=== PATIENT | female | born 1980 | race African-American/Black ===

== ENCOUNTER 2016-12-25 11:25 | Day surgery (SDC) | payer OTHER ==
[2016-12-25 11:30] VITALS: BP 162/93
[2016-12-26] MEDS ORDERED: MORPHINE ONE (09:10)
[2016-12-26] MEDS ORDERED: VERSED ONE (09:10)
== END 2016-12-25 14:54 | disposition left against medical advice (07) ==
LOC: 4N 14:47 → EDIPHOLD 14:47 → UNDODISIN 14:54 → OPS 14:54 → EDSTATUS 12-26 14:56
PROVIDERS: ATTEND Internal Medicine
DX: Z53.21 Procedure and treatment not carried out due to patient leaving prior to being seen by health care provider (principal); Z79.899 Other long term (current) drug therapy; Z79.4 Long term (current) use of insulin

== ENCOUNTER 2017-05-03 10:47 | Inpatient (IN) ==
[2017-05-03] MEDS ORDERED: ZOFRAN IV ONE ×2 (11:32→13:57)
[2017-05-03] MEDS ORDERED: MORPHINE IV ONE ×2 (11:33→13:57)
--- NOTE | 2017-05-03 11:38 | PROVIDER DOCUMENTATION ---
HPI-General Adult - General Chief Complaint: Back Pain Stated Complaint: RIGHT SIDE PAIN Time Seen by Provider: 05/03/17 11:11 Source: patient, family Allergies/Adverse Reactions: Patient Allergies Allergy/AdvReac Type Severity Reaction Status Date / Time vancomycin Allergy Severe RASH Verified 05/03/17 11:43 banana [Banana] Allergy VOMITING Verified 05/03/17 11:43 egg AdvReac Severe NAUSEA/VOMI Verified 05/03/17 11:43 TING Home Medications: Home Medication List Medication Instructions Recorded Confirmed Last Taken Type Insulin Lispro [Humalog] 8 units ORDERED DIRECTED PRN 07/25/12 05/03/17 20:00 History PRN Calcitriol [Rocaltrol] 0.25 microgm PO DAILY #0 capsule 01/06/17 05/03/17 20:00 Rx Calcium Acetate [Phoslo] 667 mg PO TID CC #90 tablet 01/06/17 05/03/17 05/02/17 20:00 Rx Calcium Carbonate [Oscal 500] 1 each PO DAILY #0 tablet 01/06/17 05/03/17 20:00 Rx Carvedilol [Coreg] 3.125 mg PO Q12HR #0 tablet 01/06/17 05/03/17 05/02/17 20:00 Rx LISINOpril [Prinivil] 5 mg PO DAILY #0 tablet 01/06/17 05/03/17 05/02/17 20:00 Rx - History of Present Illness -Gen Adult Nature of Presenting Problems: 37 year old AAF with history of DM, HTN, dialysis, bilateral BKA, presents with a 3 day history of nausea, vomiting, ANNE, fever (max temp 102) and right hip pain. pt report she was evaluated at [place] last night for same, dc'd home. pt reports the right hip pain has been worsening to a point where she is unable to bear weight this morning. she denies trauma, injury, new activity. pt reports her nausea persisted throughout the night with two episodes of vomiting with subjective fever/chills. pt reports she is still nauseated this morning, has not taken any of her meds, eaten or taken or her insulin/AM meds. pt receives dialysis tue, , sat and has not had dialysis today. Location of Pain/Injury: reports: pelvis, lower extremity (right hip) Pain Radiation: reports: legs (lower) (right), legs (upper) (right) Quality of Pain: reports: sharp, stabbing Severity: reports: mild Onset/Duration: reports: 3 days ago Timing: reports: still present, constant, getting worse Modifying Factors: improves with: analgesics (pt reports she took a norco on and Advil yesterday without relief) Associated Symptoms: reports: fever/chills, loss of appetite, malaise, nausea, vomiting, weakness, trouble walking Similar Symptoms Previously?: Yes Recently seen or treated by another doctor?: Yes Review of Systems - Adult - REVIEW OF SYSTEMS - ADULT Constitutional: reports: see HPI, chills, fever, fatique Eyes: reports: no symptoms reported. denies: discharge, blurred vision, double vision Ears, Nose, Mouth & Throat: reports: no symptoms reported. denies: ear discharge, ear pain, nose pain, loose teeth, throat pain, throat swelling Cardiovascular: reports: no symptoms reported. denies: chest pain, palpitations , syncope Respiratory: reports: no symptoms reported. denies: chronic cough, cough, shortness of breath, wheezing Gastrointestinal: reports: see HPI, nausea, poor appetite, vomiting. denies: abdominal pain, diarrhea Genitourinary: reports: no symptoms reported. denies: dysuria, hematuria, urgency Musculoskeletal: reports: see HPI. denies: bone pain, frequent leg cramps, joint pain, joint swelling, muscle aches, muscle weakness, neck pain Integumentary: reports: no symptoms reported. denies: hives, nail changes, skin sores/ulcer, skin thickening Neurological: reports: no symptoms reported. denies: ataxia, dizziness/vertigo , numbness, paresthesia Psychiatric: reports: no symptoms reported Endocrine: reports: no symptoms reported Hematologic/Lymphatic: reports: no symptoms reported Allergic/Immunologic: reports: no symptoms reported All Other Systems: Reviewed and Negative Past History - Adult - PAST MEDICAL HISTORY-ADULT Review of Records: reports: Old Records Reviewed, Nursing Assessment Review, Medications Reviewed, Social history reviewed & non-contributory. Major Childhood Illnesses: reports: denies history Cardiovascular: reports: HTN Respiratory: reports: denies history Gastrointestinal: reports: denies history Obstetrical/Gynecological: reports: denies history Genitourinary: reports: denies history Musculoskeletal: reports: denies history Neurological: reports: denies history Endocrine/Immune: reports: Diabetes Diabetes Type: Type 1 Diabetes controlled by:: Insulin Dependent Other Conditions: reports: denies history - IMMUNIZATION STATUS Childhood Immunizations: See Nurse Assessment Flu Vaccine: See Nurse Assessment - FAMILY HISTORY Family History: reviewed, not pertinent - SOCIAL HISTORY Smoking: denies, non-smoker Substance Use: none presently/history of abuse, cocaine Alcohol Use Frequency: never Physical Exam-General - PHYSICAL EXAM-ADULT Initial Vital Signs Reviewed: Yes - CONSTITUTIONAL General Appearance: appears well, alert, mild distress, lethargic. negative: no apparent distress, moderate distress, severe distress - EYES Eyes: pink conjunctivae - HEAD, EARS, NOSE, MOUTH & THROAT HENMT: normocephalic/atraumatic, moist mucous membranes - NECK Neck: non-tender, full range of motion, supple, normal inspection. negative: C- spine tenderness, limited range of motion, tender lateral, tender midline - RESPIRATORY Respiratory: chest non-tender, lungs clear, normal breath sounds, no pleuratic chest pain, no respiratory distress, no accessory muscle use. negative: respiratory distress, decreased breath sounds, accessory muscle use, crackles, rales, rhonchi, stridor, wheezing - CARDIOVASCULAR Cardiovascular: normal peripheral pulses, regular rate, rhythm, tachycardia - CHEST (BREASTS) Chest/Breast: other (dialysis catheter to right chest wall placed in December 2016) - GASTROINTESTINAL (ABDOMEN) Abdominal Exam: normal bowel sounds, non tender, soft - MUSCULOSKELETAL Back Exam: normal inspection, no CVA tenderness, no vertebral tenderness. negative: CVA tenderness, decreased range of motion, swelling, vertebral tenderness Extremity: normal range of motion, normal inspection, no pedal edema, no calf tenderness, normal capillary refill, pelvis stable, tenderness (right posterior leg tenderness). negative: non-tender, normal gait, abnormal NV exam, calf tenderness, deformity, erythema, pulse deficit, pedal edema, slow capillary refill, swelling Peripheral Pulses: radial (R): 3+, radial (L): 3+ - SKIN Integumentary: normal color, normal turgor, warm/dry - NEUROLOGIC Neurologic: grossly normal, no motor/sensory deficits - PSYCHIATRIC Psych/Mental Status: normal mood/affect, normal thought content, normal thought process, oriented x 3 Progress - PLAN OF CARE/RESULTS Progress/Plan/Lab Results: Vital Signs - 8 hr 05/03/17 10:56 Temperature 99.4 F Pulse Rate 113 H Respiratory Rate 20 Blood Pressure 161/78 O2 Sat by Pulse Oximetry 99 Orders Category Date Time Status Finger Stick Blood Sugar (ED) DIRECTED Care 05/03/17 11:28 Ordered Saline Loc NOW Care 05/03/17 11:28 Ordered CHEST-PORTABLE [RAD] Stat Exams 05/03/17 11:28 Ordered XRAY PELVIS W/HIP 2-3VW RT [RAD] Stat Exams 05/03/17 11:30 Ordered ABG [RESP] Stat Lab 05/03/17 11:28 Ordered ACETONE SERUM [CHEM] Stat Lab 05/03/17 11:30 Uncollected CBC WITH ELECTRONIC DIFF [HEME] Stat Lab 05/03/17 11:28 Uncollected COMPREHENSIVE METABOLIC PANEL [CHEM] Stat Lab 05/03/17 11:28 Uncollected LACTATE, PLASMA [CHEM] Stat Lab 05/03/17 11:28 Uncollected URINALYSIS W/POSS RFLX CULT-1 [URINALYSIS] Stat Lab 05/03/17 11:28 Uncollected URINE DRUG SCREEN Stat Lab 05/03/17 11:28 Uncollected Morphine Med 05/03/17 11:33 Once 4 mg IV NOW ONE Ondansetron [Zofran] Med 05/03/17 11:32 Once 4 mg IV NOW ONE EKG [EKG] Stat Ther 05/03/17 11:28 Ordered Laboratory Tests 05/03/17 05/03/17 05/03/17 11:50 12:43 12:43 WBC 12.54 H RBC 3.82 L Hgb 10.7 L Hct 34.9 L MCV 91.4 MCH 28.0 MCHC 30.7 L RDW Std Deviation 14.7 H Plt Count 223 MPV 9.8 Neut % (Auto) 86.9 H Lymph % (Auto) 6.1 L [place] % (Auto) 6.8 Eos % (Auto) 0.0 Baso % (Auto) 0.2 Neut # (Auto) 10.90 H Lymph # (Auto) 0.77 L [place] # (Auto) 0.85 H Eos # (Auto) 0.00 Baso # (Auto) 0.02 Specimen Type ARTERIAL Sample Site R RADIAL pH 7.40 pCO2 33 L pO2 70 HCO3 21.9 Base Excess -3.8 L Oxyhemoglobin 92.8 L ABG O2 Sat (Calculated) 13.5 L ABG O2 Saturation 93.9 L ABG Carboxyhemoglobin 0.40 ABG Methemoglobin 0.7 Herrera Test YES A-a O2 Difference 38.0 Total Hemoglobin 10.3 L Lactate 1.10 Blood Gas Modality ROOM AIR FiO2 % 21.0 Sodium 133 L Potassium 5.0 Chloride 92 L Carbon Dioxide 21 L Anion Gap 20 BUN 52 H Creatinine 7.2 H Estimated GFR/1.73 m2 8 BUN/Creatinine Ratio 7 Glucose 391 H Calculated Osmolality 297 Calcium 8.3 L Total Bilirubin 0.37 AST 10 ALT 10 Alkaline Phosphatase 307 H Total Protein 8.4 H Albumin 3.9 Globulin 4.5 Albumin/Globulin Ratio 0.9 Plasma Lactate Urine Source Urine Color Urine Turbidity Urine pH Ur Specific [place] Urine Protein Ur Glucose (Stick) Ur Ketones (Stick) Urine Blood Urine Nitrite Urine Bilirubin Urobilinogen Dipstick Urine Leukocytes Urine WBC (Auto) Urine RBC (Auto) U Epithel Cells (Auto) Urine Bacteria (Auto) Urine Opiates Screen Ur Oxycodone Screen Ur Methadone, Qual Ur Barbiturates Screen Ur Phencyclidine Scrn Ur Amphetamines Screen U Benzodiazepines Scrn Urine Cocaine Screen U Cannabinoids Screen Acetone Level NEGATIVE 05/03/17 05/03/17 05/03/17 12:43 15:05 15:05 WBC RBC Hgb Hct MCV MCH MCHC RDW Std Deviation Plt Count MPV Neut % (Auto) Lymph % (Auto) [place] % (Auto) Eos % (Auto) Baso % (Auto) Neut # (Auto) Lymph # (Auto) [place] # (Auto) Eos # (Auto) Baso # (Auto) Specimen Type Sample Site pH pCO2 pO2 HCO3 Base Excess Oxyhemoglobin ABG O2 Sat (Calculated) ABG O2 Saturation ABG Carboxyhemoglobin ABG Methemoglobin Herrera Test A-a O2 Difference Total Hemoglobin Lactate Blood Gas Modality FiO2 % Sodium Potassium Chloride Carbon Dioxide Anion Gap BUN Creatinine Estimated GFR/1.73 m2 BUN/Creatinine Ratio Glucose Calculated Osmolality Calcium Total Bilirubin AST ALT Alkaline Phosphatase Total Protein Albumin Globulin Albumin/Globulin Ratio Plasma Lactate 1.7 Urine Source CATH Urine Color STRAW Urine Turbidity CLEAR Urine pH 8.0 Ur Specific [place] 1.009 Urine Protein 300 A Ur Glucose (Stick) >1000 A Ur Ketones (Stick) 10 A Urine Blood MODERATE A Urine Nitrite NEGATIVE Urine Bilirubin NEGATIVE Urobilinogen Dipstick NORMAL Urine Leukocytes NEGATIVE Urine WBC (Auto) <10 Urine RBC (Auto) 20-40 A U Epithel Cells (Auto) <10 Urine Bacteria (Auto) NEGATIVE Urine Opiates Screen NONE DETECTED Ur Oxycodone Screen NONE DETECTED Ur Methadone, Qual NONE DETECTED Ur Barbiturates Screen NONE DETECTED Ur Phencyclidine Scrn NONE DETECTED Ur Amphetamines Screen NONE DETECTED U Benzodiazepines Scrn NONE DETECTED Urine Cocaine Screen PRESUMPTIVE POSITIVE A U Cannabinoids Screen NONE DETECTED Acetone Level Orders Category Date Time Status Finger Stick Blood Sugar (ED) DIRECTED Care 05/03/17 11:28 Active Saline Loc NOW Care 05/03/17 11:28 Active CHEST-PORTABLE [RAD] Stat Exams 05/03/17 11:28 Completed XRAY PELVIS W/HIP 2-3VW RT [RAD] Stat Exams 05/03/17 11:30 Completed ABG [RESP] Routine Lab 05/03/17 11:50 Completed ACETONE SERUM [CHEM] Stat Lab 05/03/17 12:43 Completed BLOOD CULTURE [BLDCUL] Stat Lab 05/03/17 12:50 Results CBC WITH ELECTRONIC DIFF [HEME] Stat Lab 05/03/17 12:43 Completed COMPREHENSIVE METABOLIC PANEL [CHEM] Stat Lab 05/03/17 12:43 Completed INFLUENZA SCREEN A/B Stat Lab 05/03/17 14:30 Completed LACTATE, PLASMA [CHEM] Stat Lab 05/03/17 12:43 Completed UA NIMS W/REFLEX CULT [URINALYSIS] Stat Lab 05/03/17 15:05 Completed URINE DRUG SCREEN Stat Lab 05/03/17 15:05 Completed Morphine Med 05/03/17 11:33 Discontinued 4 mg IV NOW ONE Morphine Med 05/03/17 13:57 Discontinued 4 mg IV NOW ONE Ondansetron [Zofran] Med 05/03/17 11:32 Discontinued 4 mg IV NOW ONE Ondansetron [Zofran] Med 05/03/17 13:57 Discontinued 4 mg IV NOW ONE EKG [EKG] Stat Ther 05/03/17 11:28 Ordered Vital Signs - 24 hr 05/03/17 10:56 05/03/17 12:21 05/03/17 15:13 Temperature 99.4 F 100.3 F H 100.5 F H Pulse Rate 113 H 122 H Respiratory Rate 20 21 Blood Pressure 161/78 172/75 O2 Sat by Pulse Oximetry 99 100 Reviewed labs, radiology, H&P with Dr. Peña, recommends dc home with dialysis as scheduled toady. Upon reporting this to patient, she reports she is unable to walk, bear weight on the RLE and reports she is feeling weaker and weaker. 1919: report called to Meme Dukes RN in ICU accepting patient. Vital Signs - 24 hr 05/03/17 10:56 05/03/17 12:21 05/03/17 15:13 Temperature 99.4 F 100.3 F H 100.5 F H Pulse Rate 113 H 122 H Respiratory Rate 20 21 Blood Pressure 161/78 172/75 O2 Sat by Pulse Oximetry 99 100 05/03/17 19:18 Temperature 102.5 F H Pulse Rate 132 H Respiratory Rate 22 Blood Pressure 158/75 O2 Sat by Pulse Oximetry 96 Result Diagrams: 05/03/17 12:43 05/03/17 12:43 - REASSESSMENT Reassessment #3 Time Reassessed: 16:35 Status: worsening (discussed with Dr. Peña the fact that the patient is unable to bear weight, pain is out of control and she feels entirely too weak to go home. Will contact Dr. Paez who is preparation supervisor for [facility].) Reassessment #1 Time Reassessed: 13:30 Status: improving (pt reports some pain improvement with IV morpine but remains 8/10.) Reassessment #2 Time Reassessed: 15:20 Status: worsening (pt report she is too weak for dc home, unable to bear weight on the RLE and is rtequesting admission.) Reassessment #4 Time Reassessed: 17:40 Status: worsening (pt reports the pain is worseniing again, awaiting Dr. Paez for admission, will medicate with Dilaudid.) - XRAY 1 XRAY Study: Chest Impression: Normal (no acute disease per Dr. Ayala) 2 XRAY: Right XRAY Study: Pelvis, Hip Impression: Normal (No obvious fracture. per Dr. Ayala) - CONSULTS/PCP/HOSPITALIST Notification #1 *Consult/PCP/Hospitalist*: Dr. Paez Time Discussed: 16:37 Reason/Comments: paged via small kick press operator #2 Consult: Dr. Paez Time Discussed: 16:45 Reason/Comments: admit to ICU. Consult Disposition: Will see in ED, Admit Departure - Departure Date of Disposition Decision: 05/03/17 Time of Disposition Decision: 16:44 DIAGNOSIS: Fever Qualifiers: Fever type: unspecified Qualified Code(s): R50.9 - Fever, unspecified Diabetes Qualifiers: Diabetes mellitus type: type 1 Diabetes mellitus complication status: with circulatory complication Diabetes mellitus complication detail: with other circulatory complications Qualified Code(s): E10.59 - Type 1 diabetes mellitus with other circulatory complications Disposition: ADMITTED INPATIENT 09 Certified Medical Emergency: Emergent Condition: Stable - Critical Care Note This patient required my direct & personal management of CC.: No Attestation - Physician/ CASE Attestation Patient care was provided by Advanced Practice Provider:: Yes Advanced Practice Provider:: Mary Hemphill Advanced Practice Provider documentation review:: The Mid-level provider documentation, treatment plan and medical decision making was reviewed by the physician who agrees with all treatment and medical decision making by the MLP.
[2017-05-03 12:14] LABS: ALLEN TEST YES; BE -3.8 mmoll (-3.0-3.0); BLOOD TYPE ARTERIAL; DRAW SITE R RADIAL; METHB 0.7 % (0.0-1.5); O2(CT) 13.5 mL/dL (15.0-23.0); PCO2(98.6) 33 mmHg (35-45); PO2(98.6) 70 mmHg (60-100); SAMPLE BLOOD; SAO2 93.9 % (95.0-100.0); THB 10.3 g/dL (11.5-17.4)
[2017-05-03 12:15] LABS: MODALITY ROOM AIR
--- NOTE | 2017-05-03 12:53 | Diag Imaging Result Doc PS360 ---
XRAY PELVIS W/HIP 2-3VW RT - 05/03/2017 INDICATION: right hip pain; unable bear weight TECHNIQUE: Two views COMPARISON: None FINDINGS: Portable technique was used. Image quality is very poor. No obvious fracture. IMPRESSION: No obvious fracture. Electronically signed by Austyn Ayala 05/03/2017 12:51 PM
--- NOTE | 2017-05-03 12:53 | Diag Imaging Result Doc PS360 ---
CHEST-PORTABLE - 05/03/2017 INDICATION: fever, NV TECHNIQUE: COMPARISON: 01/02/2017 FINDINGS: Stable right-sided dialysis catheter in good position. The lungs are clear. Heart size and pulmonary vascularity is normal. No pneumothorax or pleural effusion. IMPRESSION: No acute disease. Electronically signed by Austyn Ayala 05/03/2017 12:51 PM
[2017-05-03 13:14] LABS: ACETONE SERUM NEGATIVE (NEGATIVE)
[2017-05-03 13:15] LABS: BASO% 0.2 % (0.0-0.8); HEMATOCRIT 34.9 % (37.0-47.0); HEMOGLOBIN 10.7 g/dL (12.0-16.0); LYMPH# 0.77 X1000 (1.2-3.4); LYMPH% 6.1 % (20.5-51.1); MANUAL DIFF NEEDED? NO; MCHC 30.7 g/dL (33-37); MCV 91.4 FL (81-99); MONO# 0.85 X1000 (0.11-0.59); MONO% 6.8 % (1.7-9.3); MPV 9.8 FL (7.4-10.4); NEUT% 86.9 % (42.2-75.2); PLT 223 X1000 (130-400); RBC 3.82 XMIL (4.2-5.4)
[2017-05-03 13:23] LABS: AGAP 20; ALBUMIN 3.9 g/dL (3.5-5.0); ALKALINE PHOSPHATASE 307 U/L (32-104); BUN 52 mg/dL (8-22); CALCIUM 8.3 mg/dL (8.8-10.2); CHLORIDE 92 mmol/L (98-107); COSMO 297; GOT 10 U/L (10-30); GPT 10 U/L (10-36); SODIUM 133 mmol/L (136-145); TCO2 21 mmol/L (25-35); TOTAL BILIRUBIN 0.37 mg/dL (0.20-1.00); TOTAL PROTEIN 8.4 g/dL (6.3-8.3)
[2017-05-03 15:22] LABS: URINE CULTURE NEEDED? NO; URINE MICRO REVIEW NEEDED? NO; URINE SOURCE CATH
[2017-05-03 15:27] LABS: BILIRUBIN URINE NEGATIVE (NEGATIVE); BLOOD URINE MODERATE (NEGATIVE); COLOR STRAW; GLUCOSE URINE >1000 mg/dL (NEGATIVE); LEUKOCYTES URINE NEGATIVE (NEGATIVE); NITRITE URINE NEGATIVE (NEGATIVE); PROTEIN URINE 300 mg/dL (NEGATIVE); SP GRAVITY URINE 1.009; TURBIDITY URINE CLEAR (CLEAR); UROBILINOGEN URINE NORMAL (NORMAL)
[2017-05-03 15:28] LABS: UR EPITHELIAL CELLS <10 /HPF (<10); URINE BACTERIA NEGATIVE /HPF; URINE RBC 20-40 /HPF (<10); URINE WBC <10 /HPF (<10)
[2017-05-03 15:43] LABS: UR AMPHETAMINES QUAL NONE DETECTED (NONE DETECT); UR BARBITUATES QUAL NONE DETECTED (NONE DETECT); UR BENZODIAZEPIN QUAL NONE DETECTED (NONE DETECT); UR CANNABINOIDS QUAL NONE DETECTED (NONE DETECT); UR COCAINE QUAL PRESUMPTIVE POSITIVE (NONE DETECT); UR METHADONE QUAL NONE DETECTED (NONE DETECT); UR OPIATES QUAL NONE DETECTED (NONE DETECT); UR OXYCODONE QUAL NONE DETECTED (NONE DETECT); UR PCP QUAL NONE DETECTED (NONE DETECT)
[2017-05-03] MEDS ORDERED: MERREM 1 GM in NS 50 ML IV ONE (16:44)
[2017-05-03] MEDS ORDERED: ZOSYN 4.5 GM/NS 4.5 GM/100 ML IVPB IV ONE (16:44)
[2017-05-03] MEDS ORDERED: HEPARIN IV ONE ×2 (17:13→18:18)
[2017-05-03] MEDS ORDERED: DILAUDID IV ONE (17:39)
[2017-05-03] MEDS ORDERED: TYLENOL PO ONE (19:21)
[2017-05-03] MEDS ORDERED: TYLENOL PO PRN (20:41)
[2017-05-03] MEDS ORDERED: ZOFRAN IV PRN (20:42)
[2017-05-03] MEDS ORDERED: MERREM 500 MG in NS 50 ML IV SCH (20:45)
[2017-05-03] MEDS ORDERED: NS 0 ML ONE (20:46)
[2017-05-03] MEDS ORDERED: SODIUM CHLORIDE 0.9% 10 ML ONE (21:13)
[2017-05-03] MEDS: SODIUM CHLORIDE 0.9% INJ SCH (21:16)
[2017-05-03] MEDS: COREG PO SCH (21:16)
[2017-05-03] MEDS: PROTONIX IV SCH (21:16)
[2017-05-03] MEDS: MORPHINE IV PRN (21:17)
[2017-05-03] MEDS: ZYVOX 600 MG/D5W 600 MG/300 ML IVPB IV SCH (22:37)
[2017-05-03] MEDS: HUMULIN R SUBQ SCH (22:55)
--- NOTE | 2017-05-04 00:03 | HISTORY AND PHYSICAL ---
CHIEF COMPLAINT: Fever, nausea, vomiting and right hip pain. HISTORY OF PRESENT ILLNESS: The patient is a 37-year-old black female followed by Dr. Lucas. She is also followed by Dr. Ramírez founder and ceo in [place] and she has been undergoing hemodialysis there since December. The patient gives a history that she was doing well until around 3 days ago when she had prominent nausea and vomiting, could not hold anything down for a period around 24 hours then the vomiting resolved. She had developed some fever with her last dialysis which occurred on 05/01/2017. She says her discharge temperature from the dialysis was around 99.8 and she began to have higher fever over the next few days. She came in for evaluation and she also has had pain in her right hip, right low back area making it impossible for her to ambulate. She does walk with prosthetic legs as she has had bilateral BKAs remotely. Patient does admit to snorting a line of cocaine back on April 20 when she was visiting family members in [place], other than that she denies IV drug use and had not used cocaine for many years prior to that episode. The patient notes that she has had a tunnel catheter in place right upper chest since December and that was to be removed in early May as she now has a fistula in place left arm and also was scheduled to have apparent PD catheter placed and start PD dialysis soon per her report. Patient adamantly denies any sore throat, cough, dysuria and she has had no diarrhea. MEDICATIONS: Prior to admission are Humalog, Os-Tomás 500 one p.o. daily, Coreg 3.125 mg p.o. q.12 hours, Prinivil 5 mg p.o. daily, PhosLo 667 mg p.o. t.i.d., calcitriol 0.25 mcg p.o. daily. ALLERGIES: To vancomycin which caused sloughing of her skin she says and she is allergic to bananas and eggs. PAST MEDICAL HISTORY: Notable for. 1. End-stage renal disease on hemodialysis since December. 2. Longstanding uncontrolled diabetes mellitus. 3. Hypertension. 4. History of nephrotic syndrome. 5. Anemia of chronic disease. 6. Peripheral neuropathy. 7. History of bilateral [id number] amputations. PAST SURGICAL HISTORY: 1. x2. 2. History of bilateral [id number] amputations. FAMILY HISTORY: Notable for father who has diabetes, mother with osteoarthritis. SOCIAL HISTORY: The patient lives in [place]. She lives with her 2 children. She is disabled. She is a nonsmoker having smoked remotely she says, she denies alcohol, drug usage as above. REVIEW OF SYSTEMS: Negative except as above. PHYSICAL EXAMINATION: VITAL SIGNS: Show temperature 102.5 degrees, pulse 132, blood pressure 158/75, respiratory rate 22, O2 saturation room air 96-100%. GENERAL: Black female in no acute distress. SKIN: No breakdown. HEENT: NC/AT, CELIA, EOMI, sclerae anicteric. OP no redness. Tongue midline. NECK: No LA, TMG, JVD, bruits. CV: Tachycardia, regular rhythm, no murmur. LUNGS: CTA, tunnel catheter right upper chest. No definite signs of infection externally, no purulence, fistula in place left biceps area without any significant signs of infection. ABDOMEN: Protuberant, soft, nontender, nondistended, no mass, organomegaly. EXTREMITIES: Bilateral BKAs noted with no signs of skin breakdown over the stumps. She moves all extremities well. NEURO: Cranial nerves 2-12 are intact. She is conversant and alert, oriented x4. LABS: Show white count 12.5, hemoglobin 10.7, hematocrit 35, MCV 91, platelets 223,000, neutrophils 87, lymphocytes 6.1, ABG on room air reveals pH 7.4, pCO2 33, PO2 70, HC03 21.9, O2 saturation 93.9. Sodium 133, potassium 5.0, chloride 92, CO2 21, BUN 52, creatinine 7.2, glucose 391, calcium 8.3, total bilirubin 0.37, AST 10, ALT 10, alkaline phosphatase 307, total protein 8.4, albumin 3.9, plasma lactate 1.7. Urinalysis WBCs less than 10, RBCs 20-40, epithelial cells less than 10, urine bacteria negative, moderate blood on dipstick, greater than 1000 glucose on dipstick, ketones 10, negative nitrite. Urine drug screen reveals positive for cocaine otherwise negative, negative acetone level. ASSESSMENT: 1. Fever pronounced, rule out sepsis. 2. Right hip and low back pain pronounced. 3. Tunneled catheter in place right upper chest. 4. End stage renal disease on hemodialysis per Dr. Ramírez in [place]. 5. Insulin requiring diabetes mellitus . 6. Hypertension. 7. History of bilateral below-knee amputation. 8. Cocaine use. PLAN: At this time as the patient is allergic to vancomycin she has been placed on Zosyn and meropenem those will be dosed by pharmacy. Will check urine cultures, blood cultures x2 have been obtained and culture has been obtained of the right tunnel catheter and will likely need to remove this tunnel catheter but prior to doing that will discuss that with Dr. Escamilla who will be consulted regarding her hemodialysis. Continue her home medications except for insulin which will give sliding scale while monitoring serial Accu-Cheks. Will prophylax peptic ulcer disease with Protonix. We will check echocardiogram when available. We will check CT scan of her hip/pelvis and lumbar area due to the extensive pain in the right hip area to help rule out septic joint. Will follow labs closely to include CBC, BMP. cc: MD Anibal Salazar MD
[2017-05-04] MEDS: MORPHINE IV PRN ×2 (01:30→05:25)
[2017-05-04] MEDS: HUMULIN R SUBQ SCH ×5 (01:40→20:59)
[2017-05-04] MEDS: ZOSYN 2.25 GM/NS 2.25 GM/50 ML IVPB IV SCH ×4 (01:44→19:35)
[2017-05-04 06:47] LABS: BASO% 0.2 % (0.0-0.8); HEMATOCRIT 31.8 % (37.0-47.0); HEMOGLOBIN 9.7 g/dL (12.0-16.0); IMM GRAN# 0.04 X1000 (0.0-0.04); IMM GRAN% 0.3 % (0.0-0.5); LYMPH# 1.05 X1000 (1.2-3.4); LYMPH% 7.9 % (20.5-51.1); MANUAL DIFF NEEDED? YES; MCH 27.5 PG (27-31); MCHC 30.5 g/dL (33-37); MCV 90.1 FL (81-99); MONO# 1.42 X1000 (0.11-0.59); MONO% 10.7 % (1.7-9.3); MPV 10.5 FL (7.4-10.4); NEUT% 80.9 % (42.2-75.2); PLT 221 X1000 (130-400); RBC 3.53 XMIL (4.2-5.4)
[2017-05-04 06:54] LABS: CALCIUM 7.7 mg/dL (8.8-10.2); POTASSIUM 4.6 mmol/L (3.5-5.1)
[2017-05-04 07:33] LABS: BANDS 6 % (0-1); LYMPHS 8 % (21-51); MONO 6 % (1-9)
[2017-05-04] MEDS ORDERED: MORPHINE IV PRN (07:59)
[2017-05-04] MEDS: PHOSLO PO SCH ×3 (08:33→17:34)
[2017-05-04] MEDS ORDERED: PRINIVIL PO SCH (09:00)
[2017-05-04] MEDS: OSCAL 500 PO SCH (09:13)
[2017-05-04] MEDS: COREG PO SCH ×2 (09:13→20:58)
[2017-05-04] MEDS: ZYVOX 600 MG/D5W 600 MG/300 ML IVPB IV SCH (09:13)
[2017-05-04] MEDS: ROCALTROL PO SCH (09:13)
--- NOTE | 2017-05-04 09:28 | Diag Imaging Result Doc PS360 ---
LUMBAR SPINE W/O CONTRAST - 05/03/2017 INDICATION: rt hip and low back pain/ fever COMPARISON: None A CT dose reduction protocol was used. FINDINGS: Alignment is anatomic. Vertebral body heights and intervertebral disc spaces are preserved. No pars defect. Sacroiliac joints are clear. IMPRESSION: Negative exam. Electronically signed by Austyn Ayala 05/04/2017 9:25 AM
--- NOTE | 2017-05-04 09:29 | Diag Imaging Result Doc PS360 ---
PELVIS W/O CONTRAST - 05/03/2017 INDICATION: rt hip and low back pain/fever TECHNIQUE: A CT dose reduction protocol was used. COMPARISON: None FINDINGS: The bones are intact and normally aligned. Joint spaces and soft tissues are clear. There is a Quintanilla catheter in the urinary bladder. IMPRESSION: Negative exam. Electronically signed by Austyn Ayala 05/04/2017 9:27 AM
[2017-05-04] MEDS: MIRALAX PO SCH (10:24)
[2017-05-04] MEDS: DILAUDID IV PRN ×2 (10:48→17:40)
[2017-05-04] MEDS: NEURONTIN PO SCH ×2 (10:48→20:58)
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
--- NOTE | 2017-05-04 15:40 | ECHO REPORT ---
ORDER DATE: 05/04/2017 ECHOCARDIOGRAM: INDICATION: Rule out endocarditis. Notably, the patient refused Definity contrast during this study. FINDINGS: 1. Right atrium is normal in size. 2. Trace tricuspid regurgitation. RV systolic pressure of 31. 3. Normal RV size and systolic function. 4. Mild pulmonic insufficiency. 5. Mild left atrial enlargement at 4.2 cm. 6. No mitral valve prolapse. Trace mitral regurgitation. 7. Normal LV size, end-diastolic dimension of 4.5. Moderate left ventricular hypertrophy with a posterior and interventricular septal wall thickness 1.4 cm each. Normal LV systolic function. Calculated EF 61% with normal wall motion. 8. Aortic valve opens well. No evidence of stenosis or insufficiency. 9. Aorta appears normal in visualized segments. 10. No pericardial effusion seen. cc: MD Favian Mayfield MD Jagan Reddy, MD
[2017-05-04] MEDS: CUBICIN 600 MG in NS 100 ML IV SCH (17:41)
[2017-05-04] MEDS: PROTONIX IV SCH (20:58)
--- NOTE | 2017-05-04 21:46 | CONSULTATION ---
DATE OF CONSULTATION: 05/04/2017 REASON FOR CONSULTATION: Assistance with management and ESRD. HISTORY OF PRESENT ILLNESS: Ms. Galicia is a 37-year-old woman with obesity, diabetes, peripheral neuropathy, end-stage kidney disease, etc. She has been on dialysis since December of this year using a right IJ tunneled dialysis catheter. She has a left upper arm AV fistula. It has been cannulated twice without difficulty. She has plans to transition to peritoneal dialysis and actually has a surgical plan on May 14 for placement of a PD catheter. Her appetite is low and she has intermittent nausea. These symptoms have been present since she initiated dialysis. Over the last several days, she has had fever as high as 102 and she has also had pain in the right hip and posterior right leg which makes it difficult for her to ambulate. Her weakness does not affect the upper extremity or the contralateral extremity. She has no palpable tenderness. No drainage. She has not been having infection and has not been taking antibiotics as an outpatient. PAST MEDICAL HISTORY: As above. She has bilateral amputations. HOME MEDICATIONS: Insulin, Os-Tomás, Coreg, Prinivil, PhosLo, calcitriol. ALLERGIES: Vancomycin. SOCIAL HISTORY: She lives in [place] and has 2 children. She had recent cocaine use. No alcohol or tobacco. FAMILY HISTORY: Positive for diabetes. REVIEW OF SYSTEMS: Otherwise, not contributory. PHYSICAL EXAMINATION: Vital Signs: Blood pressure 100/72, heart rate 103, respirations 11, afebrile. Generally: She is a young obese woman, pleasant, interactive, in no distress. Skin: Warm and dry. Conjunctivae are pink and moist. Pupils are equal and round. Oropharynx is clear. Tongue is moist. Neck: Supple. Trachea is midline. Neck veins are not visible and sitting at 45 degrees. Heart: PMI is nondisplaced. Regular rate and rhythm. No gallops or murmurs. No rubs. Lungs: Have equal breath sounds. No crackles or wheezes. No accessory muscle use or retractions. Tunneled dialysis catheter in the right chest has no drainage on the dressing. The tunnel is nontender and there is no expressible purulence. Abdomen: Obese and soft. Bowel sounds are present. No organomegaly or masses. Extremities: Bilateral BKA. No palpable edema. She does have some pain with flexion of the right hip. The pain is located laterally and there is no palpable warmth, redness or tenderness. There is no pain with internal or external rotation of the hip. Neurologic: Grossly nonfocal. IMPRESSION: 1. End-stage kidney disease. She will be dialyzed tomorrow. We will attempt to cannulate her fistula and if no difficulty, then we will have her tunneled dialysis catheter removed. 2. Fever. Certainly given her catheter, a bacteremia would be most concerning possibility. She is on meropenem and Zyvox. I will change her is Zyvox over to daptomycin as it is more effective for bacteremia. Cultures are pending. We will check ESR. If no improvement in her hip, we may need to get Orthopedics to see her. 3. Anemia. We will dose with erythropoietin. 4. Electrolytes and acid-base are acceptable. cc: MD Anibal Michael MD
[2017-05-05] MEDS: ZOSYN 2.25 GM/NS 2.25 GM/50 ML IVPB IV SCH ×4 (01:40→19:52)
[2017-05-05] MEDS: DILAUDID IV PRN ×3 (02:50→20:25)
--- NOTE | 2017-05-05 05:53 | EKG Report ---
Test Performed on : 05/03/2017 11:38:08 AM Test Reason : NV, fever Blood Pressure : / mmHG Vent. Rate : 121 BPM Atrial Rate : 121 BPM P-R Int : 130 ms QRS Dur : 068 ms QT Int : 316 ms P-R-T Axes : 009 023 061 degrees QTc Int : 448 ms Sinus tachycardia. Septal infarct (cited on or before 03-JAN-2017) Abnormal ECG When compared with ECG of 03-JAN-2017 08:23, No significant change was found Unconfirmed Result
[2017-05-05 06:28] LABS: CALCIUM 7.7 mg/dL (8.8-10.2); POTASSIUM 5.3 mmol/L (3.5-5.1)
[2017-05-05] MEDS ORDERED: HEPARIN IV PRN (06:57)
[2017-05-05] MEDS ORDERED: TIGHT: 0.2 ML/HR MISC PRN (06:57)
[2017-05-05] MEDS ORDERED: NS 2,000 ML MISC PRN (06:57)
[2017-05-05] MEDS: HUMULIN R SUBQ SCH ×4 (07:00→20:17)
--- NOTE | 2017-05-05 07:57 | PROGRESS NOTE ---
DATE: 05/05/2017 SUBJECTIVE: She states that she is feeling better today. The pain in her leg is limited now just to the lateral hip. She is able to move the leg without significant pain. No chills or fevers. No nausea or vomiting. OBJECTIVE: Vital Signs: Blood pressure 92/62, heart rate 97, respirations 12, afebrile. General: She is an obese, young woman in no distress. Skin: Warm and dry. HEENT: Conjunctivae are pink. Pupils are equal. Neck: Neck veins are not visible. Trachea is midline. Heart: Regular without gallops or murmurs. Lungs: Have equal breath sounds. No crackles or wheezes. Abdomen: Soft, nontender. Bowel sounds present. Extremities: Have no edema, clubbing, or cyanosis. Again, better range of motion of the right leg. Laboratory Data: Sodium 133, potassium 5.3, chloride 92, bicarbonate 17, BUN 65, creatinine 9.7. Hemoglobin 9.7. C. reactive protein 246. IMPRESSION: 1. End-stage kidney disease. We will dialyze her today using her left arm fistula. If she is cannulated without difficulty, we will have her tunneled catheter removed. 2. Bacteremia. She is currently on daptomycin and Zosyn. Continue current antibiotics. Remove catheter if possible. We will ask orthopedics to take a look at her hip. 3. Hypotension. We will stop her lisinopril. cc: MD Anibal Michael MD
[2017-05-05] MEDS: NEURONTIN PO SCH ×2 (08:19→20:17)
[2017-05-05] MEDS: ROCALTROL PO SCH (08:19)
[2017-05-05] MEDS: PHOSLO PO SCH ×3 (08:19→16:20)
[2017-05-05] MEDS: MIRALAX PO SCH (08:25)
[2017-05-05] MEDS: COREG PO SCH ×2 (08:26→20:17)
[2017-05-05] MEDS: EPOGEN SUBQ SCH (08:33)
[2017-05-05] MEDS ORDERED: NS 2,000 ML ONE (08:56)
[2017-05-05] MEDS ORDERED: HEPARIN ONE (08:56)
[2017-05-05] MEDS: OSCAL 500 PO SCH (11:01)
[2017-05-05] MEDS ORDERED: DEPO-MEDROL INJ ONE (13:43)
[2017-05-05] MEDS ORDERED: MARCAINE 0.5% INJ ONE (13:43)
[2017-05-05] MEDS: CUBICIN 600 MG in NS 100 ML IV SCH (16:20)
[2017-05-05] MEDS: PROTONIX IV SCH (20:17)
--- NOTE | 2017-05-05 20:36 | PROGRESS NOTE ---
DATE: 05/05/2017 SUBJECTIVE: Level 3 documentation. Patient was admitted over the weekend by Dr. Paez on 05/03/2017. In brief, she is a 37-year-old, female, with a known history of end- stage kidney disease on dialysis under the care of Dr. Ramírez. Apparently, she is complaining of back pain, hip pain, gram-positive sepsis. She was admitted in ICU. REVIEW OF SYSTEMS: HEENT: No headache. No vision problem. Neck: No goiter. No lymphadenopathy. Cardiopulmonary: No chest pain, shortness of breath, PND, orthopnea. Tunnel catheter was placed. Also AV graft on the left side. No abdominal pain. had a back pain and the right hip pain. PAST MEDICAL HISTORY: Reviewed. PAST SURGICAL HISTORY: Reviewed. MEDICINES: Reviewed. OBJECTIVE: Vital Signs: She is afebrile, tachycardic, blood pressure is stable. 226 pounds, 2 L nasal cannula. HEENT: Atraumatic, normocephalic. Pupils equal, reactive to light. TMs are normal. Nose and throat within normal limits. Neck: Supple. No lymphadenopathy. No goiter. Chest: Bilateral air entry. Heart: Sounds are tachycardic. No murmur. Abdomen: Belly is soft, obese, nontender. Extremities: Bilateral above knee amputations noted. Neurologic: No obvious neurological deficits. INVESTIGATIONS: CBC: White cell count 13, hematocrit 32, platelets 221,000. SMA7: Sodium 133, potassium 5.3, chloride 92, BUN 65, creatinine 9.7, glucose 195. CRP was high. test was negative. Urine toxic screen is positive for cocaine. Microbiology: Urine cultures are negative. Blood cultures are gram-positive cocci positive. Radiology procedures: Pelvic CT negative. Lumbar spine CT negative. Hip and pelvic x-rays: No obvious fracture. Chest x-ray: No acute disease. ASSESSMENT AND PLAN: 1. Gram-positive sepsis probably from tunnel catheter. She has a high risk for sepsis and will discontinue tunnel catheter. Currently on daptomycin. 2. End-stage kidney disease, on dialysis. We will attempt it from the AV graft. 3. Patient is pondering to go for peritoneal dialysis in the future. 4. Illicit drug abuse. We will discuss with the family after she gets better. 5. End-stage kidney disease on Rocaltrol, calcium acetate. 6. Hypertension on Coreg. 7. Chronic pain on Neurontin. 8. Constipation on MiraLAX. 9. Gastrointestinal prophylaxis with IV Protonix. I discussed with Dr. Escamilla and the patient. LEVEL OF DOCUMENTATION: 35 minutes with a detailed report. cc: Aniabl Lucas MD
[2017-05-06] MEDS: ZOSYN 2.25 GM/NS 2.25 GM/50 ML IVPB IV SCH ×4 (01:03→21:01)
[2017-05-06] MEDS: DILAUDID IV PRN ×4 (01:03→22:33)
--- NOTE | 2017-05-06 03:52 | CONSULTATION ---
DATE OF CONSULTATION: 05/05/2017 CHIEF COMPLAINT: Right hip pain. CLINICAL HISTORY: The patient is a pleasant, 37-year-old female who was admitted 2 days ago with fever, nausea, vomiting, and right hip pain. The patient is status post bilateral BKAs and ambulates with prosthetic legs. She also complains of some right low back pain and is having a difficult time with ambulation. The patient does have underlying end-stage renal disease, on hemodialysis since December. Orthopedic consultation was requested. MEDICATIONS PRIOR TO ADMISSION: Humalog, Os-Tomás, Coreg, Prinivil, PhosLo, calcitriol. ALLERGIES: Vancomycin, banana, and eggs. PAST MEDICAL HISTORY: End-stage renal disease on hemodialysis since December, longstanding uncontrolled diabetes mellitus, hypertension, history of nephrotic syndrome, anemia of chronic disease, peripheral neuropathy. PAST SURGICAL HISTORY: x2, bilateral below knee amputations. PHYSICAL EXAMINATION: General: Patient is awake, alert, and cooperative with the exam. Musculoskeletal: Her lumbar spine has some tenderness to palpation of the right paraspinal muscle. She has significant tenderness to palpation at the right posterior SI joint region. Also has tenderness to palpation of the posterolateral aspect of the hip along for trochanteric bursa. She has good flexion of the hip with internal and external rotation. There is no crepitus. She has no groin pain. She has some discomfort on the posterior aspect of the hip and thigh along the hamstring as well. She was able to actively flex and extend her knee. Her stump was well healed and nontender to palpation. The patient's left lower extremity, her stump is well healed, nontender to palpation, good range of motion of the hip and knee. DIAGNOSTIC DATA: X-rays of the right hip revealed no obvious acute abnormality. CT scan of the pelvis revealed no evidence of bony abnormality and no evidence of joint effusion. CT scan of the lumbar spine revealed no evidence of acute abnormality. IMPRESSION: 1. Right sacroiliitis. 2. Lumbar musculoskeletal pain. 3. Right trochanter bursitis. PLAN: At this point, I discussed treatment options with the patient. At this time, the patient's seems to be significantly on the posterior buttock region, on the SI joint. Recommendation to proceed with an injection of the right SI joint was offered. This was performed in a sterile technique with 80 mg of Depo-Medrol and 0.5% Marcaine. She tolerated the procedure well. We will continue symptomatic treatment at this time. We will see how the patient responds to the current treatment regimen. cc: MD Anibal Willams MD
[2017-05-06] MEDS: HUMULIN R SUBQ SCH ×4 (06:26→20:32)
[2017-05-06] MEDS: NEURONTIN PO SCH ×2 (08:13→20:27)
[2017-05-06] MEDS: ROCALTROL PO SCH (08:13)
[2017-05-06] MEDS: COREG PO SCH ×2 (08:13→20:27)
[2017-05-06] MEDS: PHOSLO PO SCH ×3 (08:13→17:18)
--- NOTE | 2017-05-06 08:14 | PROGRESS NOTE ---
DATE: 05/06/2017 SUBJECTIVE: The patient is a pleasant 37-year-old female with end-stage renal disease who was evaluated for right sacroiliitis, lumbar musculoskeletal pain, and right trochanteric bursitis. She received an injection in the right SI joint last night and she feels better this morning. She has seen some improvement. OBJECTIVE: On physical exam, the patient has less tenderness to palpation along the posterolateral aspect of the hip and posterior buttock region. She is actually able to flex her hip, has some pain with range of motion of the hip. IMPRESSION: 1. Right sacroiliitis. 2. Lumbar musculoskeletal pain. 3. Right trochanteric bursitis. PLAN: At this point, the patient seems to have responded. Will continue allowing her to increase her activities and will treat her symptomatically. All of her questions were answered. Will be available if needed. cc: MD Anibal Willams MD
[2017-05-06] MEDS ORDERED: MISC. PHARMACY COMMUNICATION SCH (08:15)
[2017-05-06 08:29] LABS: ALBUMIN 3.1 g/dL (3.5-5.0); POTASSIUM 4.5 mmol/L (3.5-5.1)
[2017-05-06 08:32] LABS: CALCIUM 6.9 mg/dL (8.8-10.2)
[2017-05-06] MEDS ORDERED: CALCIUM GLUCONATE 1 GM in NS 50 ML IV ONE ×2 (08:39→18:24)
[2017-05-06] MEDS: OSCAL 500 PO SCH (09:00)
[2017-05-06] MEDS: MIRALAX PO SCH (10:13)
[2017-05-06 11:53] LABS: HEPATITIS PROFILE ACUTE SEE COMMENTS
--- NOTE | 2017-05-06 15:07 | PROGRESS NOTE ---
DATE: 05/06/2017 TIME SEEN: 0750. SUBJECTIVE: Ms. Galicia is resting quietly in bed. Dr. Lucas has just been at the bedside. She denies chest pain or increased work of breathing. No fever or chills. OBJECTIVE: Her most recent vital signs, temperature 99.1, blood pressure 150/66 , heart rate 104, respirations 12. She is on 2 L nasal cannula. Last recorded saturation 96%. She has had 1450 in, 1795 out. She is in a negative fluid balance for the last 48 hours. LABS: Sodium 134, potassium 4.5, chloride 91, CO2 of 26, BUN 40, creatinine 7.2. Glucose 323. Anion gap 17, calcium 6.9, phosphorus 4.9, albumin 3.1. Previous hemoglobin 9.7 on the . Positive blood cultures indicating gram-positive cocci. PHYSICAL EXAMINATION: General: This is a 37-year-old, female. She is currently resting in bed. She is in no acute distress. Skin: Warm and dry. HEENT: Normocephalic, atraumatic. Conjunctivae pale. She has CELIA. Mucous membranes moist. Neck: Supple. Trachea midline. No JVD. Cardiovascular: Regular rate and rhythm. No murmur or gallop appreciated. Lungs: Clear to auscultation anteriorly. Equal excursion on room air. Abdomen : Soft, large, round, nontender. Positive bowel sounds. Extremities: Have no edema. No clubbing or cyanosis. Good range of motion to her right upper leg and hip. Neurological: Alert and oriented x3. ASSESSMENT AND PLAN: 1. End-stage renal disease. Patient was able to be cannulated to her left arm fistula. Good palpable thrill. Dialysis went well secondary to her having positive blood cultures. We will request Dr. Mclaughlin for removal of dialysis tunnel catheter to the right chest wall. 2. Bacteremia. Again, patient is on daptomycin and Zosyn. We will change the dosing to where she has 500 mg daptomycin on Friday and Friday and 750 mg on Fridays only. We will request the assistance with pharmacy on dosing. 3. Electrolytes. These are stable. 4. Acid-base balance. This is stable. 5. Anemia. This has not been repeated. It has been stable. 6. Hypotension. Her lisinopril was stopped yesterday. I would to thank you for allowing us to follow with this patient. Seen, data reviewed, discussed with Collette Myers on 05/06/17. I agree with the above assessment and plan of care. rg Dictated by JERARDO Green for Chema Escamilla MD cc: JERARDO Green MD Jagan Reddy, MD [facility]
--- NOTE | 2017-05-06 16:50 | OPERATIVE NOTE ---
PROCEDURE DATE: 05/06/2017 PREOPERATIVE DIAGNOSIS: End-stage renal disease. POSTOPERATIVE DIAGNOSIS: End-stage renal disease. PROCEDURE: Removal of tunneled dialysis catheter. SURGEON: Chad Mclaughlin MD. ESTIMATED BLOOD LOSS: Scant. COMPLICATIONS: None apparent. BRIEF HISTORY: This is a 37-year-old female with end-stage renal disease who now has a working left arm AV fistula. She does not need her dialysis catheter anymore and I have been asked to remove it. I have discussed this with the patient including the possibility of postoperative bleeding or wound infection. She understands and agrees to proceed. TECHNIQUE: The skin around the catheter exit site and over the cuff was cleansed with Betadine, 1% lidocaine was used to anesthetize the skin and subcutaneous tissue around the cuff. An incision was made with an 11 blade over the cuff. Dissection was carried down bluntly with a hemostat. The cuff was then freed posteriorly of its underlying attachments bluntly. The surrounding lateral and proximal attachments were incised with scissors and a knife until the cuff was completely freed. The catheter was clamped proximal to the cuff and the distal portion was cut distal to this clamp and the clamp and proximal catheter tips were pulled out of the vein and subcutaneous tissue. The proximal part of the cuff and hub were then pulled out. The skin was closed with interrupted 3-0 nylon sutures. A dressing was applied. There were no apparent complications. cc: MD Anibal Garcia MD
--- NOTE | 2017-05-06 18:56 | PROGRESS NOTE ---
DATE: 05/06/2017 SUBJECTIVE: The patient has a successful dialysis through the AV graft on the left side. REVIEW OF SYSTEMS: Back pain is improved. Hemodynamics were stable. Upon questioning patient is snorting cocaine prior to this episode. REVIEW OF SYSTEMS: None reported. PHYSICAL EXAMINATION: Afebrile. Vitals are stable. Blood pressure is 130/70, pulse is 94% on room air. Input and output 750 mL.HEENT: Within normal limits. Neck: Supple. Chest: Clear. Heart: Sounds are regular. Abdomen: Belly is soft, nontender. No obvious neurological deficits. Status post bilateral above knee amputations noted. SMA 7, sodium 134, potassium 4.5, chloride 94, BUN 40, creatinine 7.2, glucose 338. Calcium 6.9. Hepatitis panel was negative. ASSESSMENT AND PLAN: 1. Gram-positive sepsis possible tunnel catheter. Consult with Dr. Mclaughlin to remove the tunnel catheter. 2. End-stage renal disease on hemodialysis, AV graft. 3. Back pain is improving. 4. Gram-positive cocci. Follow up on C and S. Continue on daptomycin. 5. Substance abuse. Counseling done. Wants to be confidential. 6. Hypocalcemia. Calcium gluconate 1 dose. Continue on calcium acetate and Rocaltrol. Level of documentation 25 minutes. cc: Anibal Lucas MD
[2017-05-06] MEDS: PROTONIX IV SCH (20:26)
[2017-05-06] MEDS: SODIUM CHLORIDE 0.9% INJ SCH (20:27)
[2017-05-07] MEDS: DILAUDID IV PRN ×5 (02:11→22:08)
[2017-05-07] MEDS: ZOSYN 2.25 GM/NS 2.25 GM/50 ML IVPB IV SCH ×2 (02:11→08:24)
[2017-05-07 06:30] LABS: ALBUMIN 3.1 g/dL (3.5-5.0); CALCIUM 7.1 mg/dL (8.8-10.2); POTASSIUM 5.2 mmol/L (3.5-5.1)
[2017-05-07] MEDS: HUMULIN R SUBQ SCH ×4 (06:37→20:07)
[2017-05-07] MEDS ORDERED: NS 2,000 ML ONE (07:09)
[2017-05-07] MEDS ORDERED: HEPARIN ONE (07:09)
[2017-05-07] MEDS ORDERED: HEPARIN IV PRN (07:17)
[2017-05-07] MEDS ORDERED: TIGHT: 0.2 ML/HR MISC PRN (07:17)
[2017-05-07] MEDS ORDERED: NS 2,000 ML MISC PRN (07:17)
[2017-05-07] MEDS: ROCALTROL PO SCH (08:24)
[2017-05-07] MEDS: OSCAL 500 PO SCH (08:25)
[2017-05-07] MEDS: MIRALAX PO SCH (08:25)
[2017-05-07] MEDS: COREG PO SCH ×2 (08:25→20:08)
[2017-05-07] MEDS: NEURONTIN PO SCH ×2 (08:25→20:08)
[2017-05-07] MEDS: PHOSLO PO SCH ×3 (08:25→16:18)
--- NOTE | 2017-05-07 08:40 | PROGRESS NOTE ---
DATE: 05/07/2017 TIME SEEN: 719 SUBJECTIVE: Ms. Galicia is resting quietly in bed. She states that she is feeling a little bit better. Did try to stand up on her bilateral prosthetics. Unfortunately, was unable to take a step forward secondary to her right hip pain. She denies chest pain or increased work of breathing. OBJECTIVE: Vital Signs: Her most recent vital signs are temperature 98.7 degrees, blood pressure 141/73, heart rate 91, respirations 12. She is on room air. Last recorded saturation 90%. She has had 1800 in. She has had 700 out per Quintanilla catheter. Laboratory Data: Sodium 135, potassium 5.2, chloride is 95, CO2 24, BUN 56, creatinine 8.2, glucose 342, anion gap 16, calcium 7.1, phosphorus 5.7, albumin 3.1. Hemoglobin previously on the was 9.7. Physical Examination: General: This is a 37-year-old, female. She is resting in bed. She is in no acute distress. Skin: Warm and dry. HEENT: Normocephalic, atraumatic. Conjunctivae pale. She has CELIA. Mucous membranes moist. Neck: Supple. Trachea midline. No JVD. Cardiovascular: Regular rate and rhythm. No murmur or gallop. Lungs: Clear to auscultation anteriorly. Equal excursion on room air. Abdomen: Soft, large, nontender. Positive bowel sounds. Extremities: Have no edema. No swelling. No cyanosis is present. Good range of motion to the right upper leg and hip. Neurological: Alert and oriented x3. ASSESSMENT AND PLAN: 1. End-stage renal disease. Patient is due for her routine dialysis treatment today. We will place her on a 2 K bath. She is to dialyze for 3.5 hours. We will attempt to pull her to her dry weight. 2. Electrolytes. These are stable. 3. Acid-base balance. This remains at goal. 4. Anemia. This is low but stable. 5. Hypotension. This has improved. 6. Bacteremia. Her right tunneled catheter has been removed. She remains on renal dosed antibiotics. I would to thank you for allowing us to follow with this patient. Seen, data reviewed, discussed with Collette Myers on 05/07/17. I agree with the above assessment and plan of care. rg Dictated by JERARDO Green for Chema Escamilla MD cc: JERARDO Green MD Jagan Reddy, MD [facility]
--- NOTE | 2017-05-07 08:58 | PROGRESS NOTE ---
DATE: 05/07/2017 SUBJECTIVE: Interval history was reviewed. The patient's tunneled catheter was removed by Dr. Chad Mclaughlin. Complains of right sciatica pain. Still has a Quintanilla catheter. She is going for dialysis today and AV graft is working very well. REVIEW OF SYSTEMS: None reported except right-sided hip pain. PHYSICAL EXAMINATION: Vital Signs: She is afebrile. Hemodynamics were stable. Blood pressure is 140/70, 90% on room air. Weight 235 pounds. Is and Os: Positive 625 mL. HEENT: Examination within normal limits. Neck: Supple. No lymphadenopathy. Chest: Clear to auscultation. Heart: Heart sounds are regular. Extremities: Right hip range of motion is normal. Neurologic: No obvious neurological deficits. INVESTIGATIONS: Urine culture is negative. Blood cultures are positive for gram-positive cocci. SMA 7: Sodium 135, potassium 5.2, chloride 95, BUN 56, creatinine 8.2, calcium 7.1. Hepatitis panel was negative. ASSESSMENT AND PLAN: 1. Gram-positive sepsis, presumed to be tunneled catheter, discontinued. Follow up on culture and sensitivity. 2. Right hip pain. Seen by Dr. Molina. Given the steroid shot. 3. End-stage kidney disease, dialysis today. 4. Presumed staphylococcal infection. Continue on daptomycin. Discontinue Zosyn. 5. Diabetes. 6. Hypertension, controlled. 7. Patient medically stable. We will transfer to the [facility] on telemetry. LEVEL OF DOCUMENTATION: 35 minutes. cc: Anibal Lucas MD
[2017-05-07] MEDS ORDERED: DILAUDID ONE (10:58)
[2017-05-07] MEDS: EPOGEN SUBQ SCH (15:03)
[2017-05-07] MEDS: CUBICIN 500 MG in NS 100 ML IV SCH (16:56)
[2017-05-07] MEDS: PROTONIX IV SCH (20:08)
[2017-05-08] MEDS: DILAUDID IV PRN ×4 (03:18→20:43)
[2017-05-08 05:21] LABS: ALBUMIN 3.4 g/dL (3.5-5.0); CALCIUM 7.4 mg/dL (8.8-10.2); POTASSIUM 4.6 mmol/L (3.5-5.1)
[2017-05-08] MEDS: HUMULIN R SUBQ SCH ×4 (06:10→20:42)
[2017-05-08] MEDS: ROCALTROL PO SCH (09:27)
[2017-05-08] MEDS: PHOSLO PO SCH ×3 (09:27→16:29)
[2017-05-08] MEDS: COREG PO SCH ×2 (09:27→20:41)
[2017-05-08] MEDS: NEURONTIN PO SCH ×2 (09:27→20:41)
[2017-05-08] MEDS: OSCAL 500 PO SCH (09:27)
[2017-05-08] MEDS: MIRALAX PO SCH (09:28)
--- NOTE | 2017-05-08 13:21 | PROGRESS NOTE ---
DATE: 05/08/2017 TIME SEEN: 0815. SUBJECTIVE: Ms. Galicia is sitting up in a chair. She has just gotten out of bed to go for an MRI. She denies chest pain or increased work of breathing. OBJECTIVE: Vital signs: Her most recent vital signs, temperature 99.3 degrees , blood pressure 158/58, heart rate 99, respirations 14. She is on room air. Last recorded saturation 99%. She has had 705 in, 2600 out, 2 L on dialysis. Labs: Sodium 137, potassium 4.6, chloride 93, CO2 28, BUN 40, creatinine 5.6, glucose 284, anion gap 16, calcium 7.4, phosphorus 5.2, albumin 3.4. Previous hemoglobin 9.7 on the . Blood cultures shows that the patient has Staph aureus bacteremia. PHYSICAL EXAMINATION: General: This is a 37-year-old female. She is resting quietly in a chair. She is in no acute distress. Skin: Warm and dry. HEENT: Normocephalic, atraumatic. Conjunctivae pale. She has CELIA. Mucous membranes moist. Neck: Supple. Trachea midline. No JVD. Cardiovascular: Regular rate and rhythm. She does have a soft murmur. Lungs: Clear to auscultation anteriorly. Equal excursion. Abdomen: Large, round, soft, nontender. Positive bowel sounds. Genitourinary: Not inspected. Patient has minimal void ; assistance with dialysis. Extremities: She has bilateral BKA. No edema. No swelling. Good range of motion. She does have continued pain to the right hip. Neurological: She is alert and oriented x3. ASSESSMENT AND PLAN: 1. End-stage renal disease. Patient is due for her routine dialysis treatment in the a.m. No indications for intervention today. 2. Electrolytes and acidosis. These remain stable. 3. Anemia. This remains low but stable. 4. Bacteremia. She continues to be followed by her primary care team. No indications for changes to her antibiotics. I would like to thank you for allowing us to follow with this patient. Seen, data reviewed, discussed with Collette Myers on 05/08/17. I agree with the above assessment and plan of care. rg Dictated by JERARDO Green for Chema Escamilla MD cc: JERARDO Green MD Jagan Reddy, MD MTDD
--- NOTE | 2017-05-08 15:16 | Diag Imaging Result Doc PS360 ---
EXAM: BONE SCAN, TOTAL BODY HISTORY: R leg/hip pain, back pain TECHNIQUE: 26.6 mCi of technetium MDP administered COMPARISON: None. FINDINGS: The patient has bilateral below the knee amputations. Normal uptake within the chest and pelvis. Increased activity in the left knee is likely arthritic in nature. Likely periodontal disease. Normal uptake within the spine. Normal activity within each hip. IMPRESSION: No acute abnormality. Electronically signed by Flash Best 05/08/2017 3:14 PM
[2017-05-08] MEDS: PROTONIX IV SCH (20:42)
--- NOTE | 2017-05-08 21:48 | PROGRESS NOTE ---
DATE: 05/08/2017 SUBJECTIVE: Patient moved out of the ICU to the step-down unit. Patient complains of right sciatica pain. The patient was seen by Dr. Molina and steroid shot did not help. She has bilateral amputations done. Unable to walk. Quintanilla catheter was placed. Tunnel catheter was removed. Follow-up blood cultures showed methicillin sensitive Staphylococcus aureus. Patient is tolerating the diet very well. Other than right sciatica pain, no other symptoms. She did have hemodialysis yesterday. EXAMINATION: Vital signs: Low grade fever, tachycardic. Blood pressure is high. Input and output -1800. HEENT: Within normal limits. Neck: Supple. Chest: Clear. Heart: Sounds are regular. Extremities: The right sciatica pain unable to assess because amputation. INVESTIGATION: 1. Previous workup, lumbar CT. 2. X-rays of the hip were unremarkable. 3. Laboratory: CRP was high. SMA7: Sodium 137, potassium 4.6, chloride 93, BUN 40, creatinine 5.6, glucose 284. ASSESSMENT AND PLAN: 1. End-stage kidney disease on dialysis. Methicillin sensitive Staphylococcus aureus. Continue present antibiotics with daptomycin. 2. Right sciatica pain, rule out herniated disk or osteomyelitis. MRI of lumbar spine, unfortunately she had patient was unable to fit in. Can consider bone scan. 3. Hypertension. On Coreg. 4. Chronic pain. On Neurontin. 5. End-stage kidney disease management with secondary parathyroidism and anemia with erythropoietin. Repeat the labs in the morning with the sedimentation rate and CRP and follow up on bone scan results. LEVEL OF DOCUMENTATION: 25 minutes. cc: Anibal Lucas MD
[2017-05-09] MEDS: DILAUDID IV PRN (03:35)
[2017-05-09 05:31] LABS: EOS# 0.19 X1000 (0.0-0.7); EOS% 1.6 % (0.0-10.0); IMM GRAN# 0.61 X1000 (0.0-0.04); IMM GRAN% 5.2 % (0.0-0.5); MANUAL DIFF NEEDED? YES; MCV 91.4 FL (81-99)
[2017-05-09 05:39] LABS: BASO% 1.1 % (0.0-0.8); HEMATOCRIT 29.9 % (37.0-47.0); HEMOGLOBIN 8.9 g/dL (12.0-16.0); MCH 27.2 PG (27-31); MCHC 29.8 g/dL (33-37); MONO% 8.4 % (1.7-9.3); MPV 10.2 FL (7.4-10.4); NEUT% 61.7 % (42.2-75.2); PLT 345 X1000 (130-400); RBC 3.27 XMIL (4.2-5.4)
[2017-05-09 05:43] LABS: ALBUMIN 3.3 g/dL (3.5-5.0); CALCIUM 7.6 mg/dL (8.8-10.2); POTASSIUM 4.6 mmol/L (3.5-5.1)
[2017-05-09] MEDS: HUMULIN R SUBQ SCH ×4 (06:06→20:55)
[2017-05-09 06:49] LABS: SED RATE 100 mm/hr (0-20)
[2017-05-09] MEDS ORDERED: NS 2,000 ML MISC PRN (06:57)
[2017-05-09] MEDS ORDERED: TIGHT: 0.2 ML/HR MISC PRN (06:57)
[2017-05-09] MEDS ORDERED: HEPARIN IV PRN (06:57)
[2017-05-09 06:58] LABS: BANDS 1 % (0-1); LYMPHS 17 % (21-51); MONO 5 % (1-9)
[2017-05-09] MEDS: PHOSLO PO SCH ×3 (07:32→18:08)
[2017-05-09] MEDS ORDERED: HEPARIN ONE (07:44)
[2017-05-09] MEDS ORDERED: NS 2,000 ML ONE (07:44)
[2017-05-09] MEDS: COREG PO SCH ×2 (08:45→20:55)
[2017-05-09] MEDS: ROCALTROL PO SCH (08:46)
[2017-05-09] MEDS: NEURONTIN PO SCH ×2 (08:46→20:55)
[2017-05-09] MEDS: MIRALAX PO SCH (08:46)
[2017-05-09] MEDS: OSCAL 500 PO SCH (08:46)
[2017-05-09] MEDS: NORCO-5 PO PRN ×2 (09:38→18:33)
[2017-05-09] MEDS: EPOGEN SUBQ SCH (09:39)
--- NOTE | 2017-05-09 10:40 | PROGRESS NOTE ---
DATE: 05/09/2017 SUBJECTIVE: She continues to have pain in her right hip with any movement or weightbearing. OBJECTIVE: Vital Signs: Blood pressure 149/79, heart rate 99, respirations 16, afebrile. General: She is in no acute distress. Skin: Warm and dry. Conjunctivae are pink. Pupils are equal. Neck: Neck veins are not distended. Heart: Regular without gallops or murmurs. Lungs: Have equal breath sounds. No crackles or wheezes. Abdomen: Soft, nontender. Bowel sounds present. Extremities: Have no edema, clubbing, or cyanosis. LABORATORY DATA: Sodium 133, potassium 4.6, chloride 93, bicarbonate 24, BUN 62, creatinine 6.7, hemoglobin 8.9. IMPRESSION: 1. End-stage kidney disease. She will have her routine hemodialysis today. 2. Anemia. We started erythropoietin and will continue this treatment. 3. Electrolytes/acid base. 4. Bacteremia. Her dialysis catheter has been removed and we are successfully using her fistula. Continue daptomycin. 5. Hip pain. Etiology unclear. cc: MD Anibal Michael MD
--- NOTE | 2017-05-09 11:10 | PROGRESS NOTE ---
DATE: 05/09/2017 LEVEL OF DOCUMENTATION: 25 minutes. SUBJECTIVE: Complains of intractable right sciatica pain, 05/22. Not able to ambulate the last 24 hours. Unable to do MRI of lumbar spine. Bone scan is negative for osteomyelitis. Patient has significant elevated sedimentation rate and CRP was coming down. Patient was seen by Dr. Molina. Given local trigger shots. Nothing seems to be helpful. She is on Dilaudid and she is going for dialysis today. REVIEW OF SYSTEMS: None reported. PHYSICAL EXAMINATION: Vital Signs: Afebrile. Vitals are stable. HEENT: Within normal limits. Chest: Clear. Heart: Sounds are regular. Abdomen: Belly is soft, obese, nontender. Good bowel sounds. Skin: I did not find any evidence of skin rashes. Extremities: I made her walk. Unable to take any few steps. Straight leg raise test without prosthesis is negative. Unable to assess the vascular status on reflexes. INVESTIGATIONS: CBC, white cell count 11, hematocrit 29, platelets 345,000. Sedimentation rate is 100. SMA 7: Sodium 133 potassium 4.6, chloride 93, BUN 60. Creatinine 6.7. Calcium 7.6. Sedimentation rate was 100. CRP was 53. Bone scan was negative. ASSESSMENT AND PLAN: 1. Methicillin-sensitive Staphylococcus aureus septicemia from tunnel catheter. Continue on IV daptomycin. 2. Right sciatica pain. Rule out herniated disk. Etiology to be determined. No evidence of osteomyelitis noted. Unable to do MRI. Other options are if the pain does get not better consider spine surgeon. Transfer to [facility]. CT myelogram. Added [place] for pain. 3. Continue present medical therapy for end-stage kidney disease, and hypertension and diabetes. Level of documentation 25 minutes. cc: Anibal Lucas MD
[2017-05-09] MEDS ORDERED: CUBICIN 750 MG in NS 100 ML IV SCH (17:00)
[2017-05-09] MEDS: PROTONIX IV SCH (20:54)
[2017-05-09] MEDS: SODIUM CHLORIDE 0.9% INJ SCH (20:54)
[2017-05-09] MEDS ORDERED: HUMULIN R SUBQ ONE (23:48)
[2017-05-10] MEDS: DILAUDID IV PRN ×4 (02:41→22:26)
[2017-05-10] MEDS: HUMULIN R SUBQ SCH ×5 (06:04→21:15)
[2017-05-10 06:05] LABS: ALBUMIN 3.4 g/dL (3.5-5.0); CALCIUM 8.3 mg/dL (8.8-10.2); POTASSIUM 4.2 mmol/L (3.5-5.1)
[2017-05-10] MEDS: NEURONTIN PO SCH ×4 (07:26→21:15)
[2017-05-10] MEDS: PHOSLO PO SCH ×3 (07:27→16:15)
[2017-05-10] MEDS: ROCALTROL PO SCH ×2 (07:27→08:38)
[2017-05-10] MEDS: COREG PO SCH ×4 (07:27→21:15)
[2017-05-10] MEDS: OSCAL 500 PO SCH ×2 (07:27→08:38)
[2017-05-10] MEDS: MIRALAX PO SCH (08:38)
--- NOTE | 2017-05-10 10:43 | PROGRESS NOTE ---
DATE: 05/10/2017 Ms. Galicia who is a 37-year-old femoral has insulin dependent diabetes, bilateral amputations, and she is in renal failure. She is on dialysis, which she had yesterday. She had MRSA septicemia secondary to a tunneled catheter and has been on IV Daptomycin. Her BUN was 48. Creatinine was 6.1. We will continue the current management on her. cc: MD Anibal Hunter MD
[2017-05-10] MEDS: PROTONIX IV SCH ×2 (19:50→21:16)
[2017-05-10] MEDS: SODIUM CHLORIDE 0.9% INJ SCH (19:50)
[2017-05-11] MEDS: DILAUDID IV PRN ×3 (04:39→20:07)
[2017-05-11] MEDS: HUMULIN R SUBQ SCH ×4 (06:08→20:14)
[2017-05-11 06:25] LABS: BASO% 1.1 % (0.0-0.8); EOS# 0.24 X1000 (0.0-0.7); EOS% 1.6 % (0.0-10.0); HEMATOCRIT 27.8 % (37.0-47.0); HEMOGLOBIN 8.2 g/dL (12.0-16.0); IMM GRAN# 0.81 X1000 (0.0-0.04); IMM GRAN% 5.3 % (0.0-0.5); LYMPH# 3.85 X1000 (1.2-3.4); LYMPH% 25.2 % (20.5-51.1); MANUAL DIFF NEEDED? NO; MCH 27.4 PG (27-31); MCHC 29.5 g/dL (33-37); MONO% 6.5 % (1.7-9.3); MPV 10.1 FL (7.4-10.4); NEUT% 60.3 % (42.2-75.2); PLT 357 X1000 (130-400); RBC 2.99 XMIL (4.2-5.4)
[2017-05-11 06:37] LABS: ALBUMIN 3.2 g/dL (3.5-5.0); POTASSIUM 4.5 mmol/L (3.5-5.1)
[2017-05-11] MEDS: NEURONTIN PO SCH ×2 (08:29→20:06)
[2017-05-11] MEDS: COREG PO SCH ×2 (08:29→20:06)
[2017-05-11] MEDS: OSCAL 500 PO SCH (08:29)
[2017-05-11] MEDS: ROCALTROL PO SCH (08:29)
[2017-05-11] MEDS: PHOSLO PO SCH ×3 (08:29→17:16)
--- NOTE | 2017-05-11 10:31 | PROGRESS NOTE ---
DATE: 05/11/2017 Ms. Galicia is a 37-year-old female, a known case of diabetes and renal failure. She is getting anemic. Her hemoglobin is down to 8.2, hematocrit 27.8, white count is 15.29. Electrolytes are normal. BUN is 69, creatinine 7.2. Sugar was 346. Overall condition is unchanged. We will repeat CBC in the morning. I may decide about further transfusion. -7 cc: MD Anibal Hunter MD
[2017-05-11] MEDS: MIRALAX PO SCH ×2 (16:43→20:14)
[2017-05-11] MEDS: SODIUM CHLORIDE 0.9% INJ SCH (20:05)
[2017-05-11] MEDS: PROTONIX IV SCH (20:05)
[2017-05-12] MEDS: DILAUDID IV PRN ×5 (01:13→22:46)
[2017-05-12 05:58] LABS: BASO% 0.2 % (0.0-0.8); EOS# 0.22 X1000 (0.0-0.7); EOS% 1.6 % (0.0-10.0); HEMATOCRIT 27.2 % (37.0-47.0); HEMOGLOBIN 7.9 g/dL (12.0-16.0); LYMPH# 2.99 X1000 (1.2-3.4); LYMPH% 21.7 % (20.5-51.1); MANUAL DIFF NEEDED? NO; MCH 27.8 PG (27-31); MCV 95.8 FL (81-99); MONO# 0.91 X1000 (0.11-0.59); MONO% 6.6 % (1.7-9.3); MPV 9.8 FL (7.4-10.4); NEUT% 69.9 % (42.2-75.2); PLT 375 X1000 (130-400); RBC 2.84 XMIL (4.2-5.4)
[2017-05-12] MEDS: HUMULIN R SUBQ SCH ×4 (06:14→21:17)
[2017-05-12 06:15] LABS: POTASSIUM 4.5 mmol/L (3.5-5.1)
[2017-05-12] MEDS ORDERED: HEPARIN ONE (07:26)
[2017-05-12] MEDS ORDERED: NS 2,000 ML ONE (07:26)
[2017-05-12] MEDS ORDERED: HEPARIN IV PRN (07:41)
[2017-05-12] MEDS ORDERED: NS 2,000 ML MISC PRN (07:41)
[2017-05-12] MEDS ORDERED: TIGHT: 0.2 ML/HR MISC PRN (07:41)
[2017-05-12] MEDS: OSCAL 500 PO SCH (08:35)
[2017-05-12] MEDS: ROCALTROL PO SCH (08:35)
[2017-05-12] MEDS: MIRALAX PO SCH (08:36)
[2017-05-12] MEDS: NEURONTIN PO SCH ×2 (08:36→21:17)
[2017-05-12] MEDS: PHOSLO PO SCH ×3 (08:36→17:33)
[2017-05-12] MEDS: COREG PO SCH ×2 (08:36→21:17)
--- NOTE | 2017-05-12 09:40 | PROGRESS NOTE ---
DATE: 05/12/2017 SUBJECTIVE: The patient is sitting up in bed. She states that she has still been unable to walk, except with great difficulty. She believes that Orthopedics is coming to look at her today. OBJECTIVE: Vital Signs: Temperature 98.2 degrees, pulse 103, respiratory rate 14, blood pressure 133/74, intake 920 mL, output 1.5 L. General: This is a middle-aged female, sitting up in bed, awake and alert, in no acute distress. HEENT: Normocephalic, atraumatic. Oral mucosa moist. Neck: Supple. No JVD. Cardiovascular: Regular rate and rhythm. There is no murmur or gallop appreciated. Pulmonary: She has equal excursion. She is clear bilaterally. She remains on 2 L nasal cannula. She has no increased work of breathing. Abdomen: Soft, obese. Positive bowel sounds. : Not inspected. Extremities: Bilateral BKA. She has some trace dependent edema to the hips. She is moving all extremities. She has an AV fistula noted to left upper extremity. Integumentary: Skin is warm and dry without rash or lesion. LABORATORY DATA: WBC of 13.7, hemoglobin 7.9. Sodium 139, potassium 4.5, CO2 of 24, creatinine 8.2, calcium 8.0. ASSESSMENT AND PLAN: 1. End-stage renal disease management. Today is her routine dialysis day. She is on a 2- potassium bath, ultrafiltrate to dry weight, 4-hour treatment. 2. Electrolytes, acid-base balance. Will address these on dialysis. 3. Anemia. Continue Epogen. 4. Bacteremia. Currently using her dialysis catheter. Previously removed, using her fistula. 5. Hip pain, decreased mobility. Followed by primary and Orthopedics. Seen, data reviewed, discussed with Cammy Yuen on 05/12/17. I agree with the above assessment and plan of care. rg Dictated by JERARDO Lopez for Chema Escamilla MD cc: MD Anibal Michael MD [facility]
[2017-05-12] MEDS: EPOGEN SUBQ SCH (13:00)
[2017-05-12] MEDS: CUBICIN 500 MG in NS 100 ML IV SCH (17:33)
--- NOTE | 2017-05-12 19:11 | PROGRESS NOTE ---
DATE: 05/12/2017 SUBJECTIVE: Interval history was reviewed over the weekend. Patient continues to have right sciatica pain. Pain is 8/10, that precluding her walking to do her activities of daily living. She still has Quintanilla catheter. The patient was seen by Dr. Molina. Bone scan was negative. She is anxious to go home. REVIEW OF SYSTEMS: The rest of the review of systems are normal. PHYSICAL EXAMINATION: Vital Signs: Afebrile. Vitals are stable. Weight 240 pounds. I Os: - 3.9 L. HEENT Examination: Within normal limits. Neck: Supple. Chest: Clear. Heart: Sounds are regular. Abdomen: Belly is soft, nontender. Good bowel sounds. Extremities: Straight leg raise test is negative. INVESTIGATIONS: Urine was negative. Blood cultures was positive for MSSA. Bone scan was negative. ASSESSMENT AND PLAN: 1. Right sciatica pain. Etiology to be determined. Continue on steroids and probably outpatient referral to the spine surgeon versus CT myelogram. The patient wants to do open MRI. 2. Methicillin sensitive Staphylococcus aureus on Cubicin. Will continue 1 dose after dialysis as an outpatient until the repeat blood cultures are negative. Pain controlled with [place]. Will discuss with Dr. Escamilla for the disposition, arrange outpatient antibiotics, and further workup. LEVEL OF DOCUMENTATION: Is 25 minutes. cc: Anibal Lucas MD
[2017-05-12] MEDS: PROTONIX IV SCH (21:17)
[2017-05-13] MEDS: DILAUDID IV PRN ×5 (02:33→21:06)
[2017-05-13] MEDS: HUMULIN R SUBQ SCH ×4 (06:15→23:13)
[2017-05-13] MEDS ORDERED: ATIVAN IV ONE (08:14)
[2017-05-13] MEDS: OSCAL 500 PO SCH (08:49)
[2017-05-13] MEDS: PHOSLO PO SCH ×3 (08:49→16:39)
[2017-05-13] MEDS: NEURONTIN PO SCH ×2 (08:49→21:06)
[2017-05-13] MEDS: COREG PO SCH ×2 (08:49→21:06)
[2017-05-13] MEDS: MIRALAX PO SCH ×2 (08:49→21:09)
[2017-05-13] MEDS: ROCALTROL PO SCH (08:49)
--- NOTE | 2017-05-13 08:58 | PROGRESS NOTE ---
DATE: 05/13/2017 SUBJECTIVE: Patient is sitting up in bed. She is hoping to go home soon. OBJECTIVE: Vital Signs: Temperature 98 degrees, pulse 94, respiratory rate 20 , blood pressure 112/54. Intake 1.3 L. Output 5.3 L. Physical Examination: General: This is a middle-aged female, sitting up in bed. She is awake, alert, in no acute distress. HEENT: Normocephalic, atraumatic. Oral mucosa moist. Neck: Supple without JVD. Cardiovascular: Regular rate and rhythm. S1-S2. No S3 or S4. Pulmonary: Equal excursion. Clear bilaterally. Abdomen: Soft. Positive bowel sounds. : Not inspected. She continues to void minimally with hemodialysis assist. Extremities: Bilateral BKA. Trace dependent edema noted to the hip. Continues to move extremities. AV fistula noted to the left upper extremity. Integumentary: Skin is warm and dry. Lab Data: I have no labs this morning. ASSESSMENT AND PLAN: 1. End-stage renal disease management. Patient underwent dialysis yesterday as per routine. Had 5.3 L removed. No issues during dialysis. If she remains in the hospital tomorrow, we will plan to dialyze her as per routine. 2. Electrolytes, acid-base balance, anemia. Continue to monitor. Continue Epogen while she is in the hospital. 3. Bacteremia. We are currently using her fistula. Her dialysis catheter was removed. 4. Hip pain, decreased mobility. Followed by primary orthopedist. 5. Medication review. Patient has received Cubicin as an outpatient and will continue this until her repeat blood cultures are negative. Seen, data reviewed, discussed with Cammy Yuen on 05/13/17. I agree with the above assessment and plan of care. rg Dictated by JERARDO Lopez for Chema Escamilla MD cc: MD Anibal Michael MD [facility]
--- NOTE | 2017-05-13 10:23 | Diag Imaging Result Doc PS360 ---
MRI LUMBAR SPINE W/O CONTRAST - 05/13/2017 INDICATION: pain to right thigh TECHNIQUE: COMPARISON: CT lumbar spine 05/04/2017 FINDINGS: The bone marrow signal is moderately sclerotic. This may reflect osteodystrophy. Alignment is anatomic. No bone marrow edema or suspicious mass. There is some nonspecific soft tissue edema in the subcutaneous tissue over the back. The conus is seen at T12 and appears normal. There is no significant disc bulge or herniation. There is multilevel mild facet degeneration at L4-5 and L5-S1. No central canal or neural foraminal stenosis. IMPRESSION: 1. Bone marrow signal is sclerotic, consistent with renal osteodystrophy. 2. Facet degeneration but no acute abnormality. No central canal or neural foraminal stenosis. Electronically signed by Austyn Ayala 05/13/2017 10:20 AM
[2017-05-13] MEDS: PROTONIX IV SCH (21:06)
--- NOTE | 2017-05-13 21:28 | PROGRESS NOTE ---
DATE: 05/13/2017 SUBJECTIVE: Patient is complaining of intractable right-sided pain, unable to walk. The patient is otherwise stable. REVIEW OF SYSTEMS: None reported. PHYSICAL EXAMINATION: Vital Signs: Afebrile. Vitals are stable. Pulse is 97 , blood pressure is 127/60. Input and output: -4 L. HEENT: Within normal limits. Neck: Supple. No lymphadenopathy. Chest: Clear. Heart: Sounds are regular. Abdomen: Belly is soft, nontender. Good bowel sounds. Bilateral below-knee amputations noted. Blood sugars 300. ASSESSMENT AND PLAN: 1. End-stage kidney disease on dialysis. 2. Methicillin sensitive Staphylococcus aureus sepsis, off tunnel catheter. Continue on IV daptomycin. We will arrange outpatient antibiotics after dialysis. 3. Right sciatica pain. Elevated sedimentation rate. We discussed the patient should for go for an magnetic resonance imaging of lumbar spine and we will give her Ativan 1 mg half an hour before the procedure. Based on the magnetic resonance imaging, further recommendations will be followed. LEVEL OF DOCUMENTATION: 25 minutes. cc: Anibal Lucas MD MTDD
[2017-05-14] MEDS: DILAUDID IV PRN ×3 (00:49→13:41)
[2017-05-14 05:12] LABS: HEMATOCRIT 26.6 % (37.0-47.0); HEMOGLOBIN 7.7 g/dL (12.0-16.0); MCHC 28.9 g/dL (33-37); MCV 96.7 FL (81-99); MPV 9.3 FL (7.4-10.4); RBC 2.75 XMIL (4.2-5.4)
[2017-05-14 06:24] LABS: ALBUMIN 3.2 g/dL (3.5-5.0); CALCIUM 7.8 mg/dL (8.8-10.2); POTASSIUM 5.4 mmol/L (3.5-5.1)
[2017-05-14] MEDS: HUMULIN R SUBQ SCH ×2 (06:39→13:13)
[2017-05-14] MEDS ORDERED: HEPARIN IV PRN (07:31)
[2017-05-14] MEDS ORDERED: TIGHT: 0.2 ML/HR MISC PRN (07:31)
[2017-05-14] MEDS ORDERED: NS 2,000 ML MISC PRN (07:31)
[2017-05-14 08:16] VITALS: BP 156/87
[2017-05-14] MEDS ORDERED: HEPARIN ONE (08:19)
[2017-05-14] MEDS ORDERED: NS 2,000 ML ONE (08:19)
[2017-05-14] MEDS: NEURONTIN PO SCH (08:29)
[2017-05-14] MEDS: OSCAL 500 PO SCH (08:29)
[2017-05-14] MEDS: ROCALTROL PO SCH (08:29)
[2017-05-14] MEDS: MIRALAX PO SCH (08:29)
[2017-05-14] MEDS: COREG PO SCH (08:29)
[2017-05-14] MEDS: PHOSLO PO SCH ×2 (08:29→13:14)
[2017-05-14] MEDS: EPOGEN SUBQ SCH (08:44)
[2017-05-14] MEDS: NORCO-5 PO PRN (08:48)
--- NOTE | 2017-05-14 15:49 | PROGRESS NOTE ---
DATE: 05/14/2017 TIME SEEN: 0800. SUBJECTIVE: Patient is sitting up in bed. She is waiting to go to dialysis. OBJECTIVE: Vital Signs: Temperature 98.2 degrees, pulse 97, respiratory rate 18, blood pressure 147/71, intake 840 mL, output 1.4 L. General: This is a middle-aged female, sitting up in bed. She is awake, alert, no acute distress. She thinks she will go home today. HEENT: Normocephalic, atraumatic. CELIA, conjunctivae pink. Oral mucosa moist. Neck: Supple. No JVD. Cardiovascular: Regular rate rhythm. No murmur or gallop appreciated. Pulmonary: She has equal excursion. She is clear bilaterally. Abdomen: Soft, positive bowel sounds. : Not inspected. She has minimal void with hemodialysis assist. Extremities: Bilateral BKA. She is moving extremities. Integumentary: Skin is warm and dry without rash or lesion. AV fistula noted left upper extremity intact. LABORATORY DATA: WBC of 12.4, hemoglobin 7.7. Sodium 135, potassium 5.4, CO2 25, BUN 81, creatinine 7.9, calcium 7.8, phosphorus 6.6, albumin 3.2. ASSESSMENT AND PLAN: 1. End-stage renal disease. Today is patient's routine dialysis day. We will plan to dialyze her on a 2K bath/UF to dry weight/4 hour treatment. 2. Electrolytes, acid-base balance, anemia. These are stable. See above for plan. 3. Bacteremia. She is on daptomycin. We have requested that the social work administrator set this up for her outpatient clinic in [place]. 4. Hypertension, currently controlled. Data reviewed, discussed with Cammy Yuen on 05/14/17. I agree with the above assessment and plan of care. rg Dictated by JERARDO Lopez for Chema Escamilla MD cc: MD Anibal Michael MD MTDD
--- NOTE | 2017-05-15 15:10 | DISCHARGE SUMMARY ---
ADMISSION DATE: 05/03/2017 DISCHARGE DATE: 05/14/2017 DISCHARGING DIAGNOSIS: Methicillin Staphylococcus sensitive aureus bacteremia. SECONDARY DIAGNOSES: 1. Intractable right sciatica pain, questionable etiology. 2. End-stage kidney disease on hemodialysis. 3. Uncontrolled type 2 diabetes. 4. Hypertension. 5. History of nephrotic syndrome. 6. Anemia of chronic disease. 7. Peripheral neuropathy. 8. History of bilateral below-knee amputation. 9. History of substance abuse with cocaine. 10. Vitamin D deficiency. CONSULTATIONS: 1. Dr. Chema Escamilla. 2. Dr. Chad Mclaughlin. 3. Dr. Juan Molina. PROCEDURES WHILE INPATIENT: 1. Dialysis through the left arm AV graft. 2. Removal of tunnel catheter. BRIEF HISTORY: Please see the H and P that was done by Dr. Paez. In brief, she is a 37-year- old, pleasant, female with end-stage kidney disease due to nephrotic syndrome from uncontrolled diabetes with above problems, who was admitted to the hospital with intractable right sciatica pain, nausea, vomiting. Patient was admitted in ICU. HOSPITAL COURSE: She has early sepsis syndrome associated with 4 gram-positive cocci. Blood cultures positive. Subsequently, it grew methicillin sensitive Staphylococcus aureus. 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 Hemodynamics were stable. She has a Quintanilla catheter placed. She is complaining of intractable right sciatica pain for which orthopedic consult was obtained by Dr. Molina. CLINICAL EXAM: Based on Dr. Molina, she was given a steroid injection at the right trochanter area. Initially symptoms were improved. However, she is not able to ambulate with prosthesis due to ongoing pain. Since the patient was bacteremic, elevated CRP and sedimentation rate, I was thinking to rule out osteomyelitis. Initially we were not able to do MRI due to claustrophobia. Subsequently lumbar CT scan did not show any bony pathology. Bone scan was negative. Subsequently MRI was done with the premedication Ativan half an hour before the procedure and this resulted in no significant pathology. Findings were reassuring to the patient. We will give the pain medicines as needed for short-term. I would advise to continue the IV antibiotics after dialysis for next [address] Escamilla is going to arrange IV Cubicin through the dialysis clinic in [place]. Patient remains afebrile. LABS: CBC: White cell count 12, hematocrit 27, platelets 358. SMA 7: Sodium 135, potassium 5.4, BUN 80, creatinine 7.9, glucose 250, calcium 7.8. Hepatitis panel is negative for hepatitis B and C. Urine tox screen came back positive for cocaine. ABG: The pH is 7.40, pCO2 33, PO2 70. MICROBIOLOGY: Urine was negative. Blood cultures were positive for Staph aureus sensitive to oxacillin, tetracycline and Bactrim. DISCHARGE INSTRUCTIONS: 1. Pneumococcal vaccine 12/2016. 2. Insulin: Humalog 8 units as directed, Os-Tomás 1 tablet daily, Coreg 3.125 p.o. b.i.d., lisinopril 5 mg daily, PhosLo 1 tablet t.i.d., Procardia 12.5 mg daily. 3. Stay away from substance abuse and patient was to keep it confidential, not revealed to the patient's father. 4. Outpatient IV antibiotics for next 2 weeks with Cubicin as per Dr. Escamilla and Aisha for p.r.n. pain. I have given a prescription for 12 tablets. cc: MD Chema Zafar MD
== END 2017-05-14 14:28 | disposition home or self-care (01) ==
LOC: ED 10:47 → ICU 18:45 → 3S 05-07 10:51
PROVIDERS: ADMIT Internal Medicine; ATTEND Internal Medicine